=== PATIENT | female | born 1965 | race Caucasian/White ===

== ENCOUNTER → 2019-11-06 12:55 | Outpatient (BNVA) | payer OTHER, SELFPAY | PROVIDERS: PCP Nurse Practitioner Family; Visit Provider Dietitian, Registered | DX: E66.9 Obesity, unspecified (principal) ==

== ENCOUNTER → 2019-11-06 12:55 | Outpatient (BNVA) | payer OTHER, SELFPAY | PROVIDERS: Visit Provider Dietitian, Registered | DX: Z76.89 Persons encountering health services in other specified circumstances (principal) ==

== ENCOUNTER 2019-11-13 10:44 | Outpatient (REF) | payer OTHER, SELFPAY ==
[2019-11-13 11:25] LABS: MANUAL DIFF FLAG NO
[2019-11-13 11:30] LABS: Basophils Percent Auto 0.7 % (0-2); Eosinophils Absolute Auto 0.1 X10*3/uL (0.0-0.4); Eosinophils Percent Auto 1.2 % (0-4); Hematocrit 44.9 % (37-47); Hemoglobin 14.7 g/dl (12.0-16.0); Imm Gran Abs Auto 0.03 X10*3/uL (0.00-0.03); Imm Gran Pct Auto 0.5 % (0.0-0.4); Lymphocytes Absolute Auto 1.6 X10*3/uL (1.2-4.9); Lymphocytes Percent Auto 28.2 % (20-40); Mean Corpuscular HGB Conc 32.7 g/dl (31.0-35.0); Mean Corpuscular Hemoglobin 30.1 pg (27.0-33.0); Mean Platelet Volume 9.8 fL (9.4-12.3); Monocytes Absolute Auto 0.4 X10*3/uL (0.1-1.2); Monocytes Percent Auto 7.1 % (2-11); Neutrophils Absolute Auto 3.5 X10*3/uL (2.0-8.3); Neutrophils Percent Auto 62.3 % (45-73); Platelet Count 307 X10*3/uL (160-400); Red Blood Count 4.88 X10*6/uL (4.20-5.50); Red Cell Distribution Width 13.9 % (11.0-16.0); White Blood Count 5.6 X10*3/uL (4.8-10.8)
[2019-11-13 12:05] LABS: Anion Gap 13 (12-20); Blood Urea Nitrogen 11 mg/dL (9-16); Calcium 8.8 mg/dL (8.4-10.2); Carbon Dioxide 26 mmol/L (22-29); Chloride 107 mmol/L (96-108); Cholesterol 193 mg/dL; Estimated Glomerular Filt Rate > 60; Glucose Fasting 98 mg/dL (60-99); HDL Cholesterol 47 mg/dL; LDL Cholesterol Calculated 127 mg/dl; Potassium 4.7 mmol/l (3.3-5.1); Sodium 141 mmol/L (135-145); Triglycerides 96 mg/dL
== END 2019-11-13 10:45 | disposition home or self-care (01) ==
LOC: HO.LAB 10:44
PROVIDERS: PCP Nurse Practitioner Family; Visit Provider Nurse Practitioner Family
DX: E66.9 Obesity, unspecified (principal); M79.7 Fibromyalgia; J45.909 Unspecified asthma, uncomplicated
CPT/HCPCS: 36415; 80048; 80061; 85025

== ENCOUNTER 2019-12-23 12:29 | Outpatient (REF) | payer OTHER, SELFPAY ==
--- NOTE | 2019-12-23 | MM_ITS ---
EXAMINATION: MM SCREENING DIGITAL BREAST TOMOSYNTHESIS, BILATERAL CLINICAL INFORMATION: Screening. Asymptomatic. The lifetime risk of breast cancer based on the Tyrer-Cuzick Model is 7%. COMPARISON: Mammography: 09/27/2018, outside digitized copied mammography from [place] 04/28/2014. TECHNIQUE: Digital breast tomosynthesis is performed in both the craniocaudal and mediolateral oblique views along with computer-aided detection (CAD). Synthesized 2D images are generated from the tomosynthesis. FINDINGS: The breasts are almost entirely fatty (ACR BI-RADS breast composition Category a). There are no significant masses, abnormal calcifications, or other abnormalities. The skin contours are smooth. No significant changes. MM/MM tomosynthesis screening BI IMPRESSION: No mammographic evidence of malignancy. ASSESSMENT: BI-RADS 1: Negative RECOMMENDATION: Routine annual mammography screening. This patient's information was entered into a reminder system with a target due date for their next mammogram.
== END 2019-12-23 12:30 | disposition home or self-care (01) ==
LOC: HO.MAMMO 12:29
PROVIDERS: PCP Nurse Practitioner Family; Visit Provider Nurse Practitioner Family
DX: Z12.31 Encounter for screening mammogram for malignant neoplasm of breast (principal)
CPT/HCPCS: 77063; 77067

== ENCOUNTER 2020-03-23 19:02 | Outpatient (REF) | payer OTHER, SELFPAY | END 2020-03-23 19:03 | disposition home or self-care (01) | LOC: HO.LNP 19:02 | PROVIDERS: Visit Provider Physician Assistant | DX: R10.9 Unspecified abdominal pain (principal); R05 Cough; I10 Essential (primary) hypertension; Z13.1 Encounter for screening for diabetes mellitus; Z13.220 Encounter for screening for lipoid disorders | CPT/HCPCS: 87086; 87088; 87186 ==

== ENCOUNTER 2020-03-30 09:54 | Outpatient (REF) | payer OTHER, SELFPAY ==
--- NOTE | ~2020-03-30 | US_ITS ---
EXAMINATION: US RETROPERITONEAL LIMITED (RENAL ONLY) CLINICAL INFORMATION: Left flank pain. COMPARISON: None TECHNIQUE: Real-time imaging of the kidneys. FINDINGS: RIGHT KIDNEY: 10.3 x 3.4 x 4.4 cm (SAG x AP x TRV). The kidney is normal in size, contour, and echogenicity. Renal cortical thickness is normal. No renal hydronephrosis. Upper pole complex cyst with septation measuring 4 x 3 x 3.4 cm. Upper pole 0.8 x 0.6 x 1.1 cm calculus. Midpole 0.3 x 0.2 x 0.2 cm calculus. LEFT KIDNEY: 10.6 x 4.4 x 5.0 cm (SAG x AP x TRV). The kidney is normal in size, contour, and echogenicity. Renal cortical thickness is normal. No focal parenchymal lesions or hydronephrosis. 0.2 x 0.2 x 0.3 cm midpole nonobstructing calculus. US/US renal BI IMPRESSION: 1. Bilateral nonobstructing renal calculi. The largest calculus is in the upper pole right kidney measuring 1.1 cm. No hydronephrosis. 2. Right renal upper pole complex cyst with septation, measuring 4 x 3 x 3.4 cm. Recommend 3-6 month followup.
== END 2020-03-30 09:55 | disposition home or self-care (01) ==
LOC: HO.HMGCX 09:54
PROVIDERS: PCP Nurse Practitioner Family; Visit Provider Physician Assistant
DX: R10.9 Unspecified abdominal pain (principal); N20.0 Calculus of kidney; N28.1 Cyst of kidney, acquired
CPT/HCPCS: 76775

== ENCOUNTER 2020-04-22 10:42 | Outpatient (REF) | payer OTHER, SELFPAY ==
--- NOTE | ~2020-04-22 | XR_ITS ---
EXAMINATION: XR CHEST CLINICAL INFORMATION: Cough. COMPARISON: None TECHNIQUE: 2 views of the chest were obtained. FINDINGS: No significant abnormality is noted involving the heart, lungs, mediastinum, bony thorax or soft tissues. XR/XR chest 2V IMPRESSION: Unremarkable chest examination.
== END 2020-04-22 10:43 | disposition home or self-care (01) ==
LOC: HO.XRAY 10:42
PROVIDERS: Visit Provider Physician Assistant
DX: R05 Cough (principal)
CPT/HCPCS: 71046

== ENCOUNTER 2020-06-17 09:52 | Outpatient (REF) | payer OTHER, SELFPAY ==
[2020-06-17 10:31] LABS: Hematocrit 42.7 % (37-47); Hemoglobin 13.6 g/dl (12.0-16.0); Mean Corpuscular HGB Conc 31.9 g/dl (31.0-35.0); Mean Corpuscular Hemoglobin 29.6 pg (27.0-33.0); Mean Platelet Volume 9.3 fL (9.4-12.3); Platelet Count 320 X10*3/uL (160-400); Red Blood Count 4.59 X10*6/uL (4.20-5.50); Red Cell Distribution Width 13.7 % (11.0-16.0); White Blood Count 7.2 X10*3/uL (4.8-10.8)
[2020-06-17 10:54] LABS: Alanine Aminotransferase 20 U/L (0-31); Albumin Level 3.9 g/dL (3.5-5.0); Alkaline Phosphatase 66 U/L (39-117); Anion Gap 11 (12-20); Aspartate Amino Transferase 15 U/L (5-31); Bilirubin Total 0.4 mg/dL (0.0-1.0); Blood Urea Nitrogen 20 mg/dL (9-16); Calcium 9.3 mg/dL (8.4-10.2); Carbon Dioxide 31 mmol/L (22-29); Chloride 106 mmol/L (96-108); Cholesterol 208 mg/dL; Estimated Glomerular Filt Rate > 60; Glucose Fasting 100 mg/dL (60-99); HDL Cholesterol 46 mg/dL; LDL Cholesterol Calculated 128 mg/dl; Potassium 4.8 mmol/L (3.3-5.1); Sodium 143 mmol/L (135-145); Total Protein 6.7 g/dL (6.5-8.0); Triglycerides 171 mg/dL
[2020-06-17 11:03] LABS: Estimated Average Glucose 111 mg/dL; Hemoglobin A1c % 5.5 %
== END 2020-06-17 09:53 | disposition home or self-care (01) ==
LOC: HO.LAB 09:52
PROVIDERS: PCP Physician Assistant; Visit Provider Physician Assistant
DX: I10 Essential (primary) hypertension (principal); R10.9 Unspecified abdominal pain; Z13.1 Encounter for screening for diabetes mellitus; Z13.220 Encounter for screening for lipoid disorders
CPT/HCPCS: 36415; 80053; 80061; 83036; 85027

== ENCOUNTER → 2020-09-06 19:19 | Outpatient (REF) | payer OTHER, SELFPAY | LOC: HO.SL 19:19 | PROVIDERS: PCP Physician Assistant; Visit Provider Physician Assistant | DX: G47.33 Obstructive sleep apnea (adult) (pediatric) (principal) | CPT/HCPCS: 95810 ==

== ENCOUNTER → 2020-09-30 10:32 | Outpatient (BNVA) | payer OTHER, SELFPAY | PROVIDERS: PCP Physician Assistant; Visit Provider Surgery | DX: L72.9 Follicular cyst of the skin and subcutaneous tissue, unspecified (principal); G60.0 Hereditary motor and sensory neuropathy; M79.7 Fibromyalgia; Z88.0 Allergy status to penicillin; Z88.8 Allergy status to other drugs, medicaments and biological substances; Z79.899 Other long term (current) drug therapy | CPT/HCPCS: 99202 ==

== ENCOUNTER 2020-10-05 09:56 | Outpatient (REF) | payer MEDICARE, SELFPAY ==
[2020-10-05 11:38] LABS: Free T4 (Free Thyroxine) 1.15 ng/dL (0.71-1.85)
== END 2020-10-05 09:57 | disposition home or self-care (01) ==
LOC: HO.LAB 09:56
PROVIDERS: PCP Physician Assistant; Visit Provider Nurse Practitioner Gerontology
DX: E03.9 Hypothyroidism, unspecified (principal)
CPT/HCPCS: 36415; 84439; 84443

== ENCOUNTER → 2020-10-13 08:13 | Outpatient (BNVA) | payer OTHER, SELFPAY | PROVIDERS: PCP Physician Assistant; Visit Provider Nurse Practitioner Gerontology | CPT/HCPCS: Q3014 ==

== ENCOUNTER → 2020-10-19 10:54 | Outpatient (BNVA) | payer OTHER, SELFPAY | PROVIDERS: PCP Physician Assistant; Visit Provider Dietitian, Registered | DX: E66.09 Other obesity due to excess calories (principal); Z68.33 Body mass index [BMI] 33.0-33.9, adult | CPT/HCPCS: 97803 ==

== ENCOUNTER 2020-11-04 13:10 | Outpatient (REF) | payer OTHER, SELFPAY ==
[2020-11-04 13:17] VITALS: BMI 35.8
[2020-11-04 13:18] VITALS: BP 100/81; PULSE 73; RESP 16; TEMP 37.1; O2SAT 97
--- NOTE | 2020-11-04 13:38 | P.OP_ITS ---
Operative Note Operative Note Date of Service: 11/04/20 Narrative: Preop diagnosis: scalp cyst Postop diagnosis: Scalp cyst Procedure: Excision of scalp cyst under local anesthesia Surgeon: Angel Ruiz MD The patient is a 55 year female with a cystic mass on the scalp at the fron toparietal area, measuring about 1 cm in diameter. She wanted this removed. She understood the technique of excision under local anesthesia. She was aware of the risks, benefits, and alternatives. She was brought to the minor procedure room and placed in reclining position. The area of the cyst was prepped and draped. Lidocaine 1% was used for local anesthesia. I made an elliptical incision in the skin overlying this cyst using blade 15. And this was carried down sharply through the full-thickness of the skin and subcutaneous fat to excise this entire indurated area. This was sent as specimen. I closed the incision with full-thickness nylon 3-0 interrupted sutures. Dressings were applied The patient tolerated procedure well. There were no complication noted. She was given wound care instructions and will be seen in the office were for removal sutures.
[2020-11-04 13:40] VITALS: BP 108/67; PULSE 80; RESP 16; O2SAT 98
== END 2020-11-04 13:11 | disposition home or self-care (01) ==
LOC: HO.MS 13:10
PROVIDERS: PCP Physician Assistant; Visit Provider Surgery
PROC: (CPT 11421; principal; 2020-11-04 13:00)
DX: L72.11 Pilar cyst (principal)
CPT/HCPCS: 11421; 88304

== ENCOUNTER → 2020-11-17 09:27 | Outpatient (BNVA) | payer OTHER, SELFPAY | PROVIDERS: PCP Physician Assistant; Referring Provider Physician Assistant; Visit Provider Surgery | DX: Z48.817 Encounter for surgical aftercare following surgery on the skin and subcutaneous tissue (principal); Z87.2 Personal history of diseases of the skin and subcutaneous tissue | CPT/HCPCS: 99212 ==

== ENCOUNTER 2020-11-25 10:16 | Outpatient (REF) | payer OTHER, SELFPAY ==
--- NOTE | ~2020-11-25 | US_ITS ---
EXAMINATION: US THYROID CLINICAL INFORMATION: Hypothyroidism COMPARISON: None TECHNIQUE: Linear transducer branch-scale and color Doppler examination with attention to the region of the thyroid. FINDINGS: SIZE: Measurements of the thyroid lobes and nodules are given in sagittal, anteroposterior and transverse dimensions respectively. Right Thyroid Lobe: 3.2 x 1.3 x 1.2 cm, volume 2.6 mL. Parenchyma: The gland echotexture is heterogeneous. Thyroid vascularity is slightly increased. Left Thyroid Lobe: 3.8 x 0.9 x 1.0 cm, volume 1.7 mL. Parenchyma: The gland echotexture is heterogeneous. Thyroid vascularity is slightly increased. Isthmus: 0.5 cm in maximum AP dimension. Estimated total number of nodules greater than or equal to 1 cm: 0. Dress Operator nodules are described as follows: 1. Location: Isthmus. Size: 0.3 x 0.3 x 0.3 cm, volume 0.01 mL. Nodule characteristics: Composition: Solid (2). Echogenicity: Hyperechoic (1). Shape: Not taller than wide (0). Margins: Smooth (0). Echogenic Foci: None (0). ACR TI-RADS total points: 3 ACR TI-RADS category: 3 2. Location: Left mid. Size: 0.3 x 0.2 x 0.2 cm, volume 0.01 mL. Nodule characteristics: Composition: Solid (2). Echogenicity: Hyperechoic (1). Shape: Not taller than wide (0). Margins: Smooth (0). Echogenic Foci: None (0). ACR TI-RADS total points: 3 ACR TI-RADS category: 3 NODES: No lymphadenopathy is seen in the tissue surrounding the thyroid gland. US/US thyroid IMPRESSION: Small heterogeneous thyroid gland. Small nodules in the isthmus and left lobe. ACR TI-RADS RECOMMENDATION REFERENCE: Ultrasound-guided fine-needle aspiration, followup ultrasound, no further follow up. * TR1 (0 point) and TR 2 (2 points): No FNA or follow up * TR3 (3 points): FNA if more than or equal to 2.5 cm in maximum dimension, followup ultrasound in 1, 3 and 5 years if 1.5 to 2.4 cm in maximum dimension. * TR4 (4-6 points): FNA if more than or equal to 1.5 cm in maximum dimension, followup ultrasound in 1, 2, 3 and 5 years if 1 to 1.4 cm in maximum dimension. * TR5 (more than or equal to 7 points): FNA if more than or equal to 1 cm in maximum dimension, followup ultrasound every year for 5 years if 0.5 to 0.9 cm in maximum dimension. * TR3, TR4 or TR5 nodules that are below the size threshold for follow up receive no follow up.
== END 2020-11-25 10:17 | disposition home or self-care (01) ==
LOC: HO.US 10:16
PROVIDERS: PCP Physician Assistant; Visit Provider Nurse Practitioner Gerontology
DX: E03.9 Hypothyroidism, unspecified (principal)
CPT/HCPCS: 76536

== ENCOUNTER → 2020-11-30 12:52 | Outpatient (BNVA) | payer OTHER, SELFPAY | PROVIDERS: PCP Physician Assistant; Visit Provider Dietitian, Registered | DX: E66.09 Other obesity due to excess calories (principal); Z68.33 Body mass index [BMI] 33.0-33.9, adult | CPT/HCPCS: 97803 ==

== ENCOUNTER 2021-01-04 10:16 | Outpatient (REF) | payer OTHER, SELFPAY ==
--- NOTE | ~2021-01-04 | MM_ITS ---
EXAMINATION: MM SCREENING DIGITAL BREAST TOMOSYNTHESIS, BILATERAL CLINICAL INFORMATION: Screening. Asymptomatic. The lifetime risk of breast cancer based on the Tyrer-Cuzick Model is 6.7%. COMPARISON: Mammography: December 23, 2019 and studies dating back to April 28, 2014 TECHNIQUE: Digital breast tomosynthesis is performed in both the craniocaudal and mediolateral oblique views along with computer-aided detection (CAD). Synthesized 2D images are generated from the tomosynthesis. FINDINGS: The breasts are almost entirely fatty (ACR BI-RADS breast composition Category a). There are no significant masses, abnormal calcifications, or other abnormalities. MM/MM tomosynthesis screening BI IMPRESSION: There are no significant changes from prior study. ASSESSMENT: BI-RADS 1: Negative RECOMMENDATION: Routine annual mammography screening. This patient's information was entered into a reminder system with a target due date for their next mammogram.
== END 2021-01-04 10:17 | disposition home or self-care (01) ==
LOC: HO.MAMMO 10:16
PROVIDERS: Visit Provider Physician Assistant
DX: Z12.31 Encounter for screening mammogram for malignant neoplasm of breast (principal)
CPT/HCPCS: 77063; 77067

== ENCOUNTER 2021-03-15 13:30 | Outpatient (REF) | payer OTHER, SELFPAY ==
--- NOTE | ~2021-03-15 | XR_ITS ---
EXAMINATION: XR CHEST CLINICAL INFORMATION: Cough COMPARISON: Previous chest x-ray April 2020 TECHNIQUE: 2 views of the chest were obtained. FINDINGS: The cardiac and mediastinal contours are stable. The lungs are clear. There is no pleural effusion or pneumothorax. Bony structures are unremarkable. XR/XR chest 2V IMPRESSION: No evidence for acute disease in the chest.
== END 2021-03-15 13:31 | disposition home or self-care (01) ==
LOC: HO.XRAY 13:30
PROVIDERS: PCP Physician Assistant; Visit Provider Dietitian, Registered
DX: E66.09 Other obesity due to excess calories (principal); R05.9 Cough, unspecified; R30.0 Dysuria; R10.9 Unspecified abdominal pain; Z68.33 Body mass index [BMI] 33.0-33.9, adult; Z71.3 Dietary counseling and surveillance
CPT/HCPCS: 71046; 97803

== ENCOUNTER → 2021-05-04 07:34 | Outpatient (BNVA) | payer OTHER, SELFPAY | PROVIDERS: PCP Physician Assistant; Visit Provider Nurse Practitioner Gerontology | DX: E03.9 Hypothyroidism, unspecified (principal); E04.1 Nontoxic single thyroid nodule; E66.09 Other obesity due to excess calories; Z68.33 Body mass index [BMI] 33.0-33.9, adult; Z71.3 Dietary counseling and surveillance | CPT/HCPCS: 99212 ==

== ENCOUNTER 2021-05-17 09:43 | Outpatient (REF) | payer OTHER, SELFPAY ==
[2021-05-17 10:47] LABS: Hematocrit 44.3 % (37.0-47.0); Hemoglobin 14.4 g/dl (12.0-16.0); Mean Corpuscular HGB Conc 32.5 g/dl (31.0-35.0); Mean Corpuscular Hemoglobin 29.9 pg (27.0-33.0); Mean Corpuscular Volume 92.1 fL (80.0-98.0); Mean Platelet Volume 10.2 fL (9.4-12.3); Platelet Count 329 X10*3/uL (160-400); Red Blood Count 4.81 X10*6/uL (4.20-5.50); Red Cell Distribution Width 14.1 % (11.0-16.0); White Blood Count 5.4 X10*3/uL (4.8-10.8)
[2021-05-17 10:51] LABS: Estimated Average Glucose 111 mg/dL; Hemoglobin A1C 142.3744 umol/L; Hemoglobin A1c % 5.5 %
[2021-05-17 11:26] LABS: Alanine Aminotransferase 65 U/L (0-31); Alkaline Phosphatase 64 U/L (39-117); Anion Gap 12 (12-20); Aspartate Amino Transferase 33 U/L (5-31); Bilirubin Total 0.5 mg/dL (0.0-1.0); Blood Urea Nitrogen 14 mg/dL (9-16); Calcium 9.4 mg/dL (8.4-10.2); Carbon Dioxide 26 mmol/L (22-29); Chloride 109 mmol/L (96-108); Cholesterol 163 mg/dL; Estimated Glomerular Filt Rate > 60; Glucose Fasting 100 mg/dL (60-99); HDL Cholesterol 37 mg/dL; LDL Cholesterol Calculated 104 mg/dl; Potassium 4.7 mmol/L (3.3-5.1); Sodium 142 mmol/L (135-145); Total Protein 6.8 g/dL (6.5-8.0); Triglycerides 110 mg/dL
[2021-05-17 11:31] LABS: Thyroid Stimulating Hormone 7.57 uIU/mL (0.32-4.0)
[2021-05-17 11:35] LABS: Free T4 (Free Thyroxine) 1.21 ng/dL (0.71-1.85)
[2021-05-17 14:10] LABS: Appearance Urine CLEAR; Color Urine YELLOW; Glucose Urine UA NEG (NEG); Leukocyte Esterase Urine TRACE (NEG); Nitrite Urine NEG (NEG); PH 7.5 (5.0-8.0); UACC Culture Trigger YES; Urine Blood NEG (NEG); Urine Ketones NEG (NEG); Urine Protein NEG (NEG-TRACE)
[2021-05-17 14:23] LABS: Bacteria Urine TRACE /LPF; RBC Urine 0 /HPF (0); Squamous Epithelial Cell Urine 3+ /LPF
== END 2021-05-17 09:44 | disposition home or self-care (01) ==
LOC: HO.LAB 09:43
PROVIDERS: Absent Provider Physician Assistant; PCP Physician Assistant; Visit Provider Nurse Practitioner Gerontology
DX: I10 Essential (primary) hypertension (principal); E03.9 Hypothyroidism, unspecified; R30.0 Dysuria; R10.9 Unspecified abdominal pain; Z13.1 Encounter for screening for diabetes mellitus; Z13.220 Encounter for screening for lipoid disorders
CPT/HCPCS: 36415; 80053; 80061; 81001; 81003; 83036; 84439; 84443; 85027; 87086

== ENCOUNTER → 2021-05-19 11:11 | Outpatient (BNVA) | payer OTHER, SELFPAY | PROVIDERS: PCP Physician Assistant; Visit Provider Dietitian, Registered | DX: E66.09 Other obesity due to excess calories (principal); Z68.33 Body mass index [BMI] 33.0-33.9, adult; Z71.3 Dietary counseling and surveillance | CPT/HCPCS: 97803 ==

== ENCOUNTER 2021-07-21 12:31 | Outpatient (REF) | payer OTHER, SELFPAY ==
[2021-07-21 13:48] LABS: Appearance Urine CLOUDY; Color Urine YELLOW; Glucose Urine UA NEG (NEG); Leukocyte Esterase Urine 2+ (NEG); Nitrite Urine NEG (NEG); Specific Gravity - Urine 1.025 (1.005-1.025); UACC Culture Trigger YES; Urine Blood 3+ (NEG); Urine Ketones NEG (NEG); Urine Protein TRACE MG/DL (NEG-TRACE)
[2021-07-21 13:54] LABS: Bacteria Urine 1+ /LPF; Mucus Urine TRACE /LPF; Squamous Epithelial Cell Urine TRACE /LPF; WBC Urine TNTC /HPF (0-4)
== END 2021-07-21 12:32 | disposition home or self-care (01) ==
LOC: HO.LAB 12:31
PROVIDERS: PCP Physician Assistant; Visit Provider Physician Assistant
DX: R30.0 Dysuria (principal)
CPT/HCPCS: 81001; 87086; 87088; 87186

== ENCOUNTER 2021-08-04 10:01 | Outpatient (REF) | payer OTHER, SELFPAY ==
--- NOTE | ~2021-08-04 | XR_ITS ---
EXAMINATION: XR ABDOMEN KUB CLINICAL INDICATION: Calculus of kidney. COMPARISON: Renal ultrasound 03/30/2020. TECHNIQUE: AP view of the abdomen. FINDINGS: There is moderate stool seen throughout the colon without significant distention. There is a small radiopaque 3 mm calculi at the left ureter adjacent to left L5 transverse process. Both kidneys are masked by stool in the colon. No organomegaly. No gross bony abnormality. XR/XR KUB IMPRESSION: Suspect 3 mm radiopaque calculi at the left ureter adjacent to left transverse process at the L5 vertebra. There is moderate stool in the colon overlying both the kidneys.
[2021-08-04 11:19] LABS: Appearance Urine HAZY; Color Urine YELLOW; Glucose Urine UA NEG (NEG); Leukocyte Esterase Urine NEG (NEG); Nitrite Urine NEG (NEG); Specific Gravity - Urine 1.015 (1.005-1.025); UACC Culture Trigger NO; Urine Blood TRACE (NEG); Urine Ketones NEG (NEG); Urine Protein NEG (NEG-TRACE)
[2021-08-04 11:31] LABS: Mucus Urine 1+ /LPF; Renal Epithelial Cells Urine 1+ /LPF; Squamous Epithelial Cell Urine 1+ /LPF
[2021-08-04 11:33] LABS: UACC CULT YES
== END 2021-08-04 10:02 | disposition home or self-care (01) ==
LOC: HO.LAB 10:01
PROVIDERS: PCP Physician Assistant; Visit Provider Physician Assistant
DX: N20.0 Calculus of kidney (principal)
CPT/HCPCS: 74018; 81001; 87086

== ENCOUNTER 2021-08-09 10:42 | Outpatient (REF) | payer OTHER, SELFPAY ==
[2021-08-09 13:59] LABS: Free T4 (Free Thyroxine) 1.03 ng/dL (0.71-1.85)
== END 2021-08-09 10:43 | disposition home or self-care (01) ==
LOC: HO.LAB 10:42
PROVIDERS: PCP Physician Assistant; Visit Provider Nurse Practitioner Gerontology
DX: E03.9 Hypothyroidism, unspecified (principal); R30.0 Dysuria
CPT/HCPCS: 36415; 84439; 84443

== ENCOUNTER 2021-08-16 10:08 | Outpatient (REF) | payer OTHER, SELFPAY ==
--- NOTE | ~2021-08-16 | US_ITS ---
EXAMINATION: US RETROPERITONEAL LIMITED (RENAL ONLY) CLINICAL INFORMATION: Calculus of kidney. COMPARISON: XR abdomen KUB 08/04/2021. US retroperitoneal limited (renal only) 03/30/2020. TECHNIQUE: Real-time imaging of the kidneys. FINDINGS: RIGHT KIDNEY: 9.9 x 3.8 x 4.3 cm (SAG x AP x TRV). The kidney is normal in size, contour, and echogenicity. Renal cortical thickness is normal. No hydronephrosis. There is anechoic cyst with septation and calcification in the upper pole measuring 4.2 x 3.2 x 3.2 cm. There is an echogenic stone upper pole measuring 0.8 x 0.9 x 0.7 cm. LEFT KIDNEY: 10.8 x 4.6 x 5.4 cm (SAG x AP x TRV). The kidney is normal in size, contour, and echogenicity. Renal cortical thickness is normal. No calculi or focal parenchymal lesions. No hydronephrosis. US/US renal BI IMPRESSION: Anechoic cyst with septation and calcification upper pole right kidney. There is a nonobstructive echogenic 0.9 cm stone in upper pole right kidney. The left kidney is unremarkable.
== END 2021-08-16 10:09 | disposition home or self-care (01) ==
LOC: HO.US 10:08
PROVIDERS: Visit Provider Physician Assistant
DX: N20.0 Calculus of kidney (principal)
CPT/HCPCS: 76775

== ENCOUNTER 2021-09-06 14:35 | Outpatient (REF) | payer OTHER, SELFPAY | END 2021-09-06 14:36 | disposition home or self-care (01) | LOC: HO.LAB 14:35 | DX: N20.0 Calculus of kidney (principal); N39.0 Urinary tract infection, site not specified | CPT/HCPCS: 87086; 87088; 87186; 99202 ==

== ENCOUNTER 2021-10-27 13:52 | Outpatient (REF) | payer OTHER, SELFPAY ==
[2021-10-27 14:42] LABS: Hematocrit 43.2 % (37.0-47.0); Hemoglobin 14.2 g/dl (12.0-16.0); Mean Corpuscular HGB Conc 32.9 g/dl (31.0-35.0); Mean Corpuscular Hemoglobin 30.2 pg (27.0-33.0); Mean Corpuscular Volume 91.9 fL (80.0-98.0); Mean Platelet Volume 9.6 fL (9.4-12.3); Platelet Count 336 X10*3/uL (160-400); Red Cell Distribution Width 13.6 % (11.0-16.0); White Blood Count 7.3 X10*3/uL (4.8-10.8)
[2021-10-27 15:10] LABS: Prothrombin Time 11.4 SEC (10.0-13.1)
[2021-10-27 15:12] LABS: Alanine Aminotransferase 30 U/L (0-31); Albumin Level 4.1 g/dL (3.5-5.0); Alkaline Phosphatase 72 U/L (39-117); Anion Gap 15 (12-20); Aspartate Amino Transferase 21 U/L (5-31); Bilirubin Direct < 0.2 mg/dL (0.0-0.5); Bilirubin Total 0.3 mg/dL (0.0-1.0); Blood Urea Nitrogen 14 mg/dL (9-16); Calcium 9.6 mg/dL (8.4-10.2); Carbon Dioxide 28 mmol/L (22-29); Chloride 103 mmol/L (96-108); Estimated Glomerular Filt Rate > 60; Glucose Random 113 mg/dL (60-115); Potassium 4.6 mmol/L (3.3-5.1); Sodium 141 mmol/L (135-145)
[2021-10-27 15:35] LABS: Free T4 (Free Thyroxine) 1.42 ng/dL (0.71-1.85); Thyroid Stimulating Hormone 0.63 uIU/mL (0.32-4.0)
== END 2021-10-27 13:53 | disposition home or self-care (01) ==
LOC: HO.LAB 13:52
PROVIDERS: Internal Medicine Endocrinology, Diabetes & Metabolism; Visit Provider Physician Assistant
DX: Z01.818 Encounter for other preprocedural examination (principal); E03.9 Hypothyroidism, unspecified
CPT/HCPCS: 36415; 80048; 80076; 84439; 84443; 85027; 85610

== ENCOUNTER → 2021-11-11 13:26 | Outpatient (BNVA) | payer OTHER, SELFPAY | PROVIDERS: PCP Physician Assistant; Visit Provider Urology | DX: N20.0 Calculus of kidney (principal) | CPT/HCPCS: Q3014 ==

== ENCOUNTER 2021-12-07 05:53 | Day surgery (SDC) | payer OTHER, SELFPAY ==
[2021-12-02 15:14] VITALS: BMI 36.9
[2021-12-05 10:28] VITALS: BMI 37.8
--- NOTE | 2021-12-06 10:44 | HO.ANESPROP2 ---
Documented by User: Isis Merchant NP 12/06/21 10:46 HPI - Anesthesia Eval Consult details Narrative: 56yo F for Right ESWL No previous ESWL on record (Cleared for mandibular surgery by PCP 10/2021) PMFSH Active Problems Active Problems: All Active Problems (Updated 10/27/21 @ 13:16 by Estevan Reed PA-C) Pre-op evaluation (Acute) Nephrolithiasis (Acute) Cervical myopathy (Acute) Atopic dermatitis (Acute) Annual physical exam (Acute) Neuropathy (Acute) Right flank pain (Acute) COVID-19 virus infection (Acute) Bronchitis (Acute) Thoracic spine pain (Acute) Thyroid nodule (Acute) Hypothyroidism (Acute) Obesity due to excess calories (Acute) BASIM (generalized anxiety disorder) (Acute) MDD (major depressive disorder), recurrent episode, moderate (Acute) Migraines (Acute) Scalp cyst (Acute) Cyst, dermoid, scalp and neck (Acute) Hypothyroidism (Acute) Allergic rhinitis (Acute) JACKY (obstructive sleep apnea) (Acute) Talisha onychomycosis (Acute) CVA (cerebral vascular accident) (Acute) Annual physical exam (Acute) Screening for hypercholesterolemia (Acute) Screening for diabetes mellitus (DM) (Acute) Dysuria (Acute) Cough (Acute) Thoracic spine pain (Acute) Left flank pain (Acute) Arthritis (Acute) Active asthma (Acute) Fibromyalgia (Acute) Obesity (BMI 30.0-34.9) (Acute) Past Medical History Medical History Active asthma Arthritis 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) Alcohol intake: never Patient Tobacco Use Status: Former Tobacco user Quit Date: 2001 Tobacco use type: Cigarette e-Cigarette/Vaping Use: Never Used Second Hand Smoke Exposure: No Are you DNR?: No Advance Directives: No Advance Directives Information Provided: Yes Advance Directives on File: No service: No Current occupational status: disabled Cognitive needs: No Hearing needs: No Vision needs: Yes Meds Allergies Allergy/AdvReac Type Severity Reaction Status Date / Time Androgenic Anabolic Steroid Allergy Severe throat Verified 12/05/21 10:25 swelling cortisone Allergy Severe throat Verified 12/05/21 10:25 swelling Penicillins [PENICILLINS] Allergy Severe throat Verified 12/05/21 10:25 swelling Home Medications Medication Instructions Recorded Confirmed Last Taken Type quetiapine 400 mg tablet (Seroquel) 400 mg PO BEDTIME 11/11/19 12/05/21 Unknown History clonazepam 1 mg tablet 1 mg PO TID PRN Anxiety 02/19/20 12/05/21 Unknown History hydroxyzine pamoate 25 mg capsule 25 mg PO TID 10/13/20 12/05/21 Unknown History naproxen 500 mg tablet 500 mg PO Q12H PRN Pain 10/13/20 12/05/21 11/30/21 History Exam Exam Date and Time: December 06, 2021 1044 Height,Weight and Vital Signs: Height 5 ft 2 in Weight 93.894 kg Pertinent Lab Results Pertinent Lab Results: Laboratory Tests 10/27/21 10/27/21 14:14 14:14 WBC 7.3 Hgb 14.2 Hct 43.2 Plt Count 336 Sodium 141 Potassium 4.6 Chloride 103 Carbon Dioxide 28 BUN 14 Creatinine 0.74 Narrative Narrative: EKG SR @ 80 LAD Assessment and Plan Assessment Anesthesia Assessment: Chart Reviewed Documented by User: Jillian Hernandez MD 12/07/21 07:51 [facility] Active Problems Active Problems: All Active Problems (Updated 10/27/21 @ 13:16 by Estevan Reed PA-C) Pre-op evaluation (Acute) Nephrolithiasis (Acute) Cervical myopathy (Acute) Atopic dermatitis (Acute) Annual physical exam (Acute) Neuropathy (Acute) Right flank pain (Acute) COVID-19 virus infection (Acute) Bronchitis (Acute) Thoracic spine pain (Acute) Thyroid nodule (Acute) Hypothyroidism (Acute) Obesity due to excess calories (Acute) BASIM (generalized anxiety disorder) (Acute) MDD (major depressive disorder), recurrent episode, moderate (Acute) Migraines (Acute) Scalp cyst (Acute) Cyst, dermoid, scalp and neck (Acute) Hypothyroidism (Acute) Allergic rhinitis (Acute) JACKY (obstructive sleep apnea) (Acute). Uses CPAP machine Talisha onychomycosis (Acute) CVA (cerebral vascular accident) (Acute) Annual physical exam (Acute) Screening for hypercholesterolemia (Acute) Screening for diabetes mellitus (DM) (Acute) Dysuria (Acute) Cough (Acute) Thoracic spine pain (Acute) Left flank pain (Acute) Arthritis (Acute) Active asthma (Acute). Used inhaler yesterday 12/06/21 Fibromyalgia (Acute) Obesity (BMI 30.0-34.9) (Acute) Past Medical History Medical History Active asthma Arthritis Charcot Angelika Tooth muscular atrophy CMT (Dvwvlvo-Rzxec-Yhrwb disease) Fibromyalgia Hypothyroidism Obesity due to excess calories Scalp cyst Family History Family History Father Diabetes Hypertension Mother Hypertension Psoriatic arthritis Depression Psoriasis Brother Cancer Brother No problems noted. Sister Hypothyroidism Maternal Grandfather Cancer Family/Other FHx: mental illness Child No Financial Resp Muscular dystrophy Family history of problems with anesthesia: No Surgical History Surgical History History of bilateral carpal tunnel release History of carpal tunnel release History of colonoscopy History of mammogram History of partial hysterectomy History of Problems with Anesthesia: Yes (PONV) Social History Social History (Reviewed 11/11/21 @ 13:29 by NICHOLAS Lamas Housing: Apartment Are you a primary district manager primary care sales to a significant other at home: No Do you presently have visiting nurse or other home services: Yes ([employer]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) Alcohol intake: never Patient Tobacco Use Status: Former Tobacco user Quit Date: 2001 Tobacco use type: Cigarette e-Cigarette/Vaping Use: Never Used Second Hand Smoke Exposure: No Are you DNR?: No Advance Directives: No Advance Directives Information Provided: Yes Advance Directives on File: No service: No Current occupational status: disabled Cognitive needs: No Hearing needs: No Vision needs: Yes Meds Allergies Allergy/AdvReac Type Severity Reaction Status Date / Time Androgenic Anabolic Steroid Allergy Severe throat Verified 12/05/21 10:25 swelling cortisone Allergy Severe throat Verified 12/05/21 10:25 swelling Penicillins [PENICILLINS] Allergy Severe throat Verified 12/05/21 10:25 swelling Home Medications Medication Instructions Recorded Confirmed Last Taken Type quetiapine 400 mg tablet (Seroquel) 400 mg PO BEDTIME 11/11/19 12/05/21 Unknown History clonazepam 1 mg tablet 1 mg PO TID PRN Anxiety 02/19/20 12/05/21 Unknown History hydroxyzine pamoate 25 mg capsule 25 mg PO TID 10/13/20 12/05/21 Unknown History naproxen 500 mg tablet 500 mg PO Q12H PRN Pain 10/13/20 12/05/21 11/30/21 History Exam Height,Weight and Vital Signs: Height 5 ft 2 in Weight 93.894 kg Vital Signs Temp Pulse Resp BP Pulse Ox O2 Del Method 12/07/21 06:49 98 F 78 18 140/90 H 97 Room Air Airway Mallampati Class: III (Small mouth opening) TM Dist: >3cm Neck ROM: Full Loose/Missing/Broken Teeth: No (Denies broken or loose teeth) Heart: RRR Lungs: CTAB. No wheezes Assessment and Plan Assessment Anesthesia Assessment: Anesthesia Plan Discussed Final Anesthetic Review Family History of Problems with Anesthesia: No History of Problems with Anesthesia: Yes (PONV) NPO: Yes ASA Class: III Final Preanesthetic Review: No Changes in Pt Med Stat, Meds/Allgs Chart Reviewed, Consent Obtained/Reviewed and Anes Risks/Benef Reviewed Patient Risk: Intermediate Procedure Risk: Low Assessment/Block/Sedation in SS: Assess/Block/Sedation-SS Anesthetic Plan Anesthetic Plan: MAC: Disposition: Standard PACU
[2021-12-07] VITALS (7 sets, daily range): BP systolic 109–140; BP diastolic 67–90; PULSE 61–78; RESP 15–23; TEMP 36.1–36.6; O2SAT 97–100
--- NOTE | ~2021-12-07 | XR_ITS ---
EXAMINATION: XR ABDOMEN KUB CLINICAL INDICATION: Right renal stone COMPARISON: 08/04/2021 TECHNIQUE: AP view of the abdomen. FINDINGS: There is a 3 mm calcification adjacent to the left L5 transverse process, which may represent a ureteral calculus or phlebolith, in similar position to prior. Redemonstrated 5 mm calcification overlying the right kidney. Bowel gas pattern is nonobstructive. Moderate amount of stool is noted in the colon. Included lung bases are well-aerated. No acute osseous findings are seen. XR/XR KUB IMPRESSION: 3 mm calcification adjacent to the left L5 transverse process may represent a ureteral calculus or phlebolith, in similar position to prior. Redemonstrated 5 mm right renal calculus.
[2021-12-07] MEDS: Lactated Ringers 1,000 ML 100 ML IVCONT (07:08)
--- NOTE | 2021-12-07 07:49 | MHC.SHP ---
Pre-Procedural Eval Section A Date of Service: 12/07/21 The patient is an INPATIENT: No Changes since office visit: No Cold of Flu in the past 2 weeks, No New Medical Problems, No Changes in Medication and No Patient answered all questions The History & Physical has been completed within 30 days and I have reviewed it.: Yes Section B Chief Complaint: Calculus of kidney Relevant Social History: None Present Medications: see Short Stay Collaborative assessment Medical History: No relevant PMH History of Previous Operations: No relevant previous surgery Allergies: Allergies Allergy/AdvReac Type Severity Reaction Status Date / Time Androgenic Anabolic Steroid Allergy Severe throat Verified 12/05/21 10:25 swelling cortisone Allergy Severe throat Verified 12/05/21 10:25 swelling Penicillins [PENICILLINS] Allergy Severe throat Verified 12/05/21 10:25 swelling Review of Systems Sugical H&P ROS: Negative: Constitution, Cardiovascular, Respiratory, Neurological, Psychiatric, Hem-Onc, Allergic/Immunologic, Gastrointestinal, Genitourinary, Musculoskeletal, Integumentary, Endocrine and Eyes/Ears/Nose/Throat Exam Surgical H&P Exam: Normal: HEENT, Normal: Heart, Normal: Lungs, Normal: Extremities, Normal: Abdomen, Normal: Skin and Normal: Neurological Plan Diagnosis/Plan: Unchanged (right ESWL) I have reviewed the history and physical and performed a pertinent physical examination on my patient. No changes have occurred unless specified.
--- NOTE | 2021-12-07 07:50 | W.PM.OPN ---
Operative Note Operative Note Date of Service: 12/07/21 Narrative: PreOperative Diagnosis: right Renal stones Post Operative Diagnosis: right Renal stones Procedure: right ESWL Surgeon: Dr Zach Joe Anesthesia: mac/sedation Indications for procedure: The patient understands ESWL may be a staged procedure and subsequent intervention may be required based on imaging after ESWL. They also understand there is a risk of bleeding to the kidney, infection, damage to adjacent organs, and stone migration following the procedure. - Imaging right 9mm upper pole stone Procedure: After informed consent was verified the patient was brought to the operating room and placed in a supine position. Anesthesia was performed per protocol. Safety pause time-out was performed. Imaging was displayed in the room and laterality confirmed. ESWL was performed. The 1st 500 shocks were performed at 60 hertz. These were performed with increasing power. Once maximum power was reached the rate was increased to 180 hertz. A total of 2500 shocks were given. Targeted imaging with ultrasound/fluoroscopy showed stone smudging suggestive of disintegration. The patient tolerated the procedure well and was transferred to the recovery area upon completion. Post procedure imaging will be organized. There was no evidence for flank discoloration.
== END 2021-12-07 09:50 | disposition home or self-care (01) ==
PROVIDERS: PCP Physician Assistant; Visit Provider Urology
PROC: (CPT 50590; principal; 2021-12-07 07:30)
DX: N20.0 Calculus of kidney (principal); J45.909 Unspecified asthma, uncomplicated; M79.7 Fibromyalgia; G60.0 Hereditary motor and sensory neuropathy; E03.9 Hypothyroidism, unspecified; F41.8 Other specified anxiety disorders; G47.33 Obstructive sleep apnea (adult) (pediatric); E66.01 Morbid (severe) obesity due to excess calories; Z68.36 Body mass index [BMI] 36.0-36.9, adult; Z79.899 Other long term (current) drug therapy; Z99.89 Dependence on other enabling machines and devices; Z79.1 Long term (current) use of non-steroidal anti-inflammatories (NSAID); Z88.0 Allergy status to penicillin; Z86.73 Personal history of transient ischemic attack (TIA), and cerebral infarction without residual deficits; Z87.891 Personal history of nicotine dependence
CPT/HCPCS: 50590; 74018; J1885; J2250; J2405; J3010

== ENCOUNTER 2021-12-20 09:37 | Outpatient (REF) | payer OTHER, SELFPAY ==
--- NOTE | ~2021-12-20 | US_ITS ---
EXAMINATION: US RETROPERITONEAL LIMITED (RENAL ONLY) CLINICAL INFORMATION: Calculus of kidney. COMPARISON: X-ray abdomen KUB 12/07/2021 and 08/04/2021. Ultrasound retroperitoneal limited (renal only) like 01/24/2022 and 03/30/2020. TECHNIQUE: Real-time imaging of the kidneys. FINDINGS: RIGHT KIDNEY: 9.0 x 3.4 x 5.3 cm (SAG x AP x TRV). The kidney is normal in size, contour, and echogenicity. Renal cortical thickness is normal. No hydronephrosis. There is anechoic cyst with septation in the upper pole measuring 3.9 x 3.0 x 3.1 cm. There is an echogenic stone in upper pole measuring 0.8 x 0.5 x 0.5 cm. There is no caliectasis. LEFT KIDNEY: 10.3 x 4.5 x 5.0 cm (SAG x AP x TRV). The kidney is normal in size, contour, and echogenicity. Renal cortical thickness is normal. No calculi or focal parenchymal lesions. No hydronephrosis. US/US renal BI IMPRESSION: 1. Nonobstructive echogenic stone upper pole right kidney. No caliectasis or hydronephrosis. 2. Complex cyst upper pole right kidney. 3. Unremarkable left kidney.
== END 2021-12-20 09:38 | disposition home or self-care (01) ==
LOC: HO.US 09:37
PROVIDERS: Visit Provider Urology
DX: N20.0 Calculus of kidney (principal)
CPT/HCPCS: 76775

== ENCOUNTER → 2021-12-22 11:27 | Outpatient (BNVA) | payer OTHER, SELFPAY | PROVIDERS: PCP Nurse Practitioner Family; Visit Provider Urology | DX: N20.0 Calculus of kidney (principal) | CPT/HCPCS: Q3014 ==

== ENCOUNTER 2022-01-10 09:39 | Outpatient (REF) | payer OTHER, SELFPAY ==
--- NOTE | ~2022-01-10 | MM_ITS ---
EXAMINATION: MM SCREENING DIGITAL BREAST TOMOSYNTHESIS, BILATERAL CLINICAL INFORMATION: Screening. Asymptomatic. The lifetime risk of breast cancer based on the Tyrer-Cuzick Model is 5%. COMPARISON: Mammography: 01/04/2021, 12/23/2019, 09/27/2018 TECHNIQUE: Digital breast tomosynthesis is performed in both the craniocaudal and mediolateral oblique views along with computer-aided detection (CAD). Synthesized 2D images are generated from the tomosynthesis. FINDINGS: The breasts are almost entirely fatty (ACR BI-RADS breast composition Category a). There are no significant masses, abnormal calcifications, or other abnormalities. Background stromal markings are similar to prior studies. No developing density. No architectural abnormality. Intramammary node again seen posterior upper outer right breast. The axilla and skin contours are unremarkable. MM/MM tomosynthesis screening BI IMPRESSION: No mammographic evidence of malignancy. ASSESSMENT: BI-RADS 2: Benign RECOMMENDATION: Routine annual mammography screening. This patient's information was entered into a reminder system with a target due date for their next mammogram.
== END 2022-01-10 09:40 | disposition home or self-care (01) ==
LOC: HO.MAMMO 09:39
PROVIDERS: PCP Nurse Practitioner Family; Visit Provider Physician Assistant
DX: Z12.31 Encounter for screening mammogram for malignant neoplasm of breast (principal)
CPT/HCPCS: 77063; 77067

== ENCOUNTER 2022-03-02 09:44 | Outpatient (REF) | payer OTHER, SELFPAY ==
--- NOTE | ~2022-03-02 | US_ITS ---
EXAMINATION: US ABDOMEN COMPLETE CLINICAL INFORMATION: Unspecified abdominal pain, left upper quadrant pain, assess pancreas. Left flank pain. COMPARISON: Ultrasound retroperitoneal limited (renal only) 12/20/2021. X-ray abdomen KUB 12/07/2021. Ultrasound retroperitoneal limited (renal only) 08/16/2021. X-ray abdomen KUB 08/04/2021. TECHNIQUE: Real-time imaging of the abdominal viscera. FINDINGS: PANCREAS: Normal. ABDOMINAL AORTA: The proximal, mid, and distal segments are normal in caliber. INFERIOR VENA CAVA: Visualized portions are normal. LIVER: The liver is normal in size. The liver contour is normal. There is increased liver echogenicity. No focal hepatic lesion. There is no intrahepatic biliary duct dilatation seen. GALLBLADDER: Gallbladder wall thickness is 0.27 cm. The gallbladder is physiologically distended without evidence of stones, sludge, polyps, wall thickening or pericholecystic fluid. COMMON BILE DUCT: Normal in caliber measuring 0.4 cm in diameter. RIGHT KIDNEY: There is a nonobstructive echogenic stone in the upper pole measuring 0.64 x 0.49 x 0.73). Previously it measured 0.8 x 0.5 x 0.5 cm. There is an anechoic cyst with small septation Bosniak type II measuring 3.7 x 3.3 x 3.8 cm. Previously it measured 3.9 x 3.0 x 3.1 cm. No hydronephrosis. The kidney measures 8.8 cm in maximum dimension. LEFT KIDNEY: Normal. No hydronephrosis. No renal calculi or focal parenchymal lesions. The kidney measures 11.1 cm in maximum dimension. SPLEEN: Normal. The spleen measures 9.9 cm in maximum dimension. FREE FLUID: None. US/US abdomen complete IMPRESSION: 1. Nonobstructive echogenic stone upper pole right kidney and a complex Bosniak type II cyst upper pole right kidney. Grossly they are stable from last renal exam 12/20/2021. 2. Mild hepatic steatosis without focal lesion. 3. Rest of the abdominal ultrasound is unremarkable.
== END 2022-03-02 09:45 | disposition home or self-care (01) ==
LOC: HO.HMGCX 09:44
PROVIDERS: PCP Physician Assistant; Visit Provider Nurse Practitioner Family
DX: R10.9 Unspecified abdominal pain (principal)
CPT/HCPCS: 76700

== ENCOUNTER 2022-04-19 10:11 | Outpatient (REF) | payer OTHER, SELFPAY ==
[2022-04-19 11:24] LABS: Appearance Urine Clear; Color Urine Yellow; Glucose Urine UA Negative (Negative); Leukocyte Esterase Urine Trace (Negative); Nitrite Urine Negative (Negative); PH 6.5 (5.0-9.0); Specific Gravity - Urine 1.015 (1.005-1.025); UMIC TRIGGER UACC YES; Urine Blood Negative (Negative); Urine Ketones Negative (Negative); Urine Protein Negative (Neg-Trace)
[2022-04-19 11:26] LABS: Bacteria Urine None Seen (None Seen); Hyaline Casts Urine 0-2 /LPF (0-2); RBC Urine 0-2 /HPF (0-2); Squamous Epithelial Cell Urine 0-2 /HPF (0-2); WBC Urine 0-5 /HPF (0-5)
[2022-04-19 12:24] LABS: Free T4 (Free Thyroxine) 1.17 ng/dL (0.71-1.85); Thyroid Stimulating Hormone 3.24 uIU/mL (0.32-4.0)
== END 2022-04-19 10:12 | disposition home or self-care (01) ==
LOC: HO.LAB 10:11
PROVIDERS: Internal Medicine Endocrinology, Diabetes & Metabolism; PCP Physician Assistant; Visit Provider Physician Assistant
DX: E03.9 Hypothyroidism, unspecified (principal); R30.0 Dysuria
CPT/HCPCS: 36415; 81001; 84439; 84443

== ENCOUNTER → 2022-04-20 12:06 | Outpatient (BNVA) | payer OTHER, SELFPAY | PROVIDERS: PCP Physician Assistant; Visit Provider Internal Medicine Endocrinology, Diabetes & Metabolism | DX: E03.9 Hypothyroidism, unspecified (principal); E04.2 Nontoxic multinodular goiter | CPT/HCPCS: 99212 ==

== ENCOUNTER 2022-05-18 09:39 | Outpatient (REF) | payer OTHER, SELFPAY ==
--- NOTE | ~2022-05-18 | CT_ITS ---
EXAMINATION: CT ABDOMEN WITHOUT CONTRAST CLINICAL INFORMATION: Epigastric pain COMPARISON: Ultrasound abdomen 03/02/2022 and 12/20/2021. TECHNIQUE: Contiguous axial thin section helical images of the abdomen were performed without contrast. The data set was reformatted in the coronal and sagittal planes and reviewed on an independent workstation. This CT examination was performed using dose optimization techniques as appropriate, variously including the following: *Automated exposure control *Adjustment of mA and/or kV according to patient size (this includes techniques or standardized protocols for targeted exams where dose is matched to indication/reason for exam; i.e. extremities or head) *Use of iterative reconstruction technique DLP: 304 mGy-cm FINDINGS: LUNG BASES: The lung bases are clear. Heart size is normal. LIVER, GALLBLADDER, BILIARY TREE: The liver is homogeneous in density, normal size and contour. No focal lesion seen. There is no intrahepatic, extrahepatic ductal dilatation. No perihepatic fluid collection seen. PANCREAS: The pancreas is homogeneous in density and appears unremarkable. SPLEEN: The spleen is unremarkable. ADRENAL GLANDS AND KIDNEYS: Bilateral adrenal glands are unremarkable. There is a 3.9 x 3.0 cm exophytic cyst measuring 2 Hounsfield units likely a simple cyst compared to a complex cyst seen on recent ultrasound in upper pole right kidney. There is a question if stone is causing a dilated calyx versus true cyst. Adjacent to this cyst is a 6 mm radiopaque calculi. The left kidney is unremarkable. There is no hydronephrosis. BOWEL LOOPS: The small bowel loops are normal caliber. There is scattered stool throughout the entire colon. The appendix is not in the [id number]. There is haziness in the small bowel mesentery, a nonspecific finding. LYMPH NODES: There are no retroperitoneal lymph nodes. However, there is small lymph node in the small bowel mesentery in midabdomen measuring 6 mm on axial image 49/3. VASCULAR: Unremarkable. BONES: No aggressive lytic or sclerotic process seen. CT/CT abdomen wo IV con IMPRESSION: 1. Simple cyst right kidney upper pole with inferiorly positioned radiopaque calculi. Question caliectasis secondary to renal stones or 2 separate etiologies. 2. Mild constipation. Fleischner guidelines were followed.
== END 2022-05-18 09:40 | disposition home or self-care (01) ==
LOC: HO.CT 09:39
PROVIDERS: PCP Physician Assistant; Visit Provider Physician Assistant
DX: R10.13 Epigastric pain (principal); R10.11 Right upper quadrant pain
CPT/HCPCS: 74150

== ENCOUNTER 2022-06-01 09:48 | Outpatient (REF) | payer OTHER, SELFPAY ==
--- NOTE | ~2022-06-01 | US_ITS ---
EXAMINATION: US RETROPERITONEAL LIMITED (RENAL ONLY) CLINICAL INFORMATION: Calculus of kidney. COMPARISON: CT abdomen 05/18/2022. Ultrasound abdomen complete 03/02/2022. TECHNIQUE: Real-time imaging of the kidneys. FINDINGS: RIGHT KIDNEY: 10.4 x 3.9 x 4.7 cm (SAG x AP x TRV). The kidney is normal in size, contour, and echogenicity. Renal cortical thickness is normal. No hydronephrosis. 4.6 cm cyst in the upper pole with thin mural calcification (Bosniak 2 no follow-up imaging recommended). 1.1 cm nonobstructing calculus in the upper pole. LEFT KIDNEY: 12.1 x 3.9 x 4.7 cm (SAG x AP x TRV). The kidney is normal in size, contour, and echogenicity. Renal cortical thickness is normal. No calculi or focal parenchymal lesions. No hydronephrosis. US/US renal BI IMPRESSION: 1.1 cm nonobstructing calculus in the upper pole of the right kidney.
== END 2022-06-01 09:49 | disposition home or self-care (01) ==
LOC: HO.US 09:48
PROVIDERS: PCP Physician Assistant; Visit Provider Urology
DX: N20.0 Calculus of kidney (principal)
CPT/HCPCS: 76775

== ENCOUNTER → 2022-06-08 12:03 | Outpatient (BNVA) | payer OTHER, SELFPAY | PROVIDERS: PCP Physician Assistant; Visit Provider Nurse Practitioner Family | DX: K21.9 Gastro-esophageal reflux disease without esophagitis (principal); K59.00 Constipation, unspecified; R10.13 Epigastric pain | CPT/HCPCS: 99202 ==